=== PATIENT | female | born 1960 ===

== ENCOUNTER 2017-07-21 12:58 | Emergency (ER) | payer BC ==
[2017-07-21 14:29] VITALS: BP 130/64
--- NOTE | 2017-07-21 14:32 | UC ---
[facility] HPI - HPI Summary HPI Summary: 57 year old female presents with complains of sore/swollen tongue. - History of Current Complaint Chief Complaint: UCDentalProblem Stated Complaint: ORAL COMPLAINT Time Seen by Provider: 07/21/17 14:32 Hx Obtained From: Patient Hx Last Menstrual Period: n/a Onset/Duration: Sudden Onset Severity: Moderate Pain Scale Used: 0-10 Numeric - 5 - Allergies/Home Medications Allergies/Adverse Reactions: Allergies Allergy/AdvReac Type Severity Reaction Status Date / Time DAIRY Allergy Vomiting Uncoded 07/21/17 14:29 Home Medications: Home Medications Insulin Aspart [Novolog Flexpen] 1 unit SC TID 07/21/17 [History Confirmed 07/21] PMH/Surg Hx/FS Hx/Imm Hx Previously Healthy: Yes - Surgical History Surgical History: Yes Surgery Procedure, Year, and Place: Rt SHOULDER-DECOMPRESSION/DEBREEDING 2010. VECTRECTOMY (cleared for mri 06/12/2011); TUBAL LIGATION. GASTRO BYPASS. Lt TRIGGER FINGER. HYSTERECTOMY - Family History Known Family History: Positive: None - Social History Alcohol Use: Rare Substance Use Type: None Smoking Status (MU): Never Smoked Tobacco Have You Smoked in the Last Year: No - Immunization History Most Recent Influenza Vaccination: has not had Review of Systems Constitutional: Negative Skin: Negative Eyes: Negative ENT: Other - swollen tongue Respiratory: Negative Cardiovascular: Negative Gastrointestinal: Negative Genitourinary: Negative Motor: Negative Neurovascular: Negative Musculoskeletal: Negative Neurological: Negative Psychological: Negative All Other Systems Reviewed And Are Negative: Yes Physical Exam Triage Information Reviewed: Yes Vital Signs: Initial Vital Signs Temp 36.6 C 07/21/17 14:26 Pulse 76 07/21/17 14:26 Resp 16 07/21/17 14:26 BP 130/64 07/21/17 14:26 Pulse Ox 98 07/21/17 14:26 Eye Exam: Normal ENT Exam: Normal ENT: Positive: Other - swollen/erythematous tongue Dental Exam: Normal Neck exam: Normal Neck: Positive: 1 Respiratory Exam: Normal Cardiovascular Exam: Normal Abdominal Exam: Normal Musculoskeletal Exam: Normal Neurological Exam: Normal Psychological Exam: Normal Skin Exam: Normal Dental Complaint Course/Dx - Differential Dx/Diagnosis Provider Diagnoses: swollen tongue. painful tongue Discharge - Discharge Plan Condition: Stable Disposition: HOME Prescriptions: Amoxicillin/Clavulanate 600 [Augmentin Es-600 (NF)] 600 mg PO BID #100 btl Fluconazole [Diflucan 150 MG (NF)] 150 mg PO ONCE #1 tab Magic M W2 Jose/Maal/Nyst/Lido* 5 ml SWISH SPIT QID PRN #120 ml PRN Reason: Pain predniSONE TAB* [Deltasone TAB*] 40 mg PO DAILY #8 tab Patient Education Materials: Oral Candidiasis (ED) Forms: *Work Release Referrals: Ruben Cordova MD [Primary Care Provider] -
[2017-07-21] MEDS ORDERED: methylPREDNISolone 125 MG* 2 ML VIAL IM ONE (14:39)
== END 2017-07-21 15:35 | disposition home or self-care (01) ==
LOC: UCCORT 12:58
DX: K14.8 Other diseases of tongue (principal); K14.6 Glossodynia
CPT/HCPCS: 87070; 87205; 87640; 87641; 96372; 99212; G0463; J2930

== ENCOUNTER 2018-11-02 06:17 | Day surgery (SDC) | payer BC, OTHER ==
--- NOTE | 2018-10-27 09:42 | HP ---
Amended report to enter cosigning physician. PREOPERATIVE HISTORY AND PHYSICAL: DATE OF ADMISSION/SURGERY: 11/02/18 DATE OF OFFICE VISIT/ENCOUNTER: 10/21/18 ATTENDING SURGEON: Pia Rodrigues MD* (dictated by MARY CARMEN Barron). PROCEDURE: Right index and ring trigger finger releases. HISTORY OF PRESENT ILLNESS: This is a 58-year-old female who has had problems with triggering in her right index and ring fingers since 2017. This is a work- related problem. She has received cortisone injections to both fingers, more than once over the past couple of years and notes it had been helpful. Unfortunately, the symptoms returned. She is now interested in pursing more definitive treatment for this problem in the form of trigger finger releases. PAST MEDICAL HISTORY: 1. ADD. 2. Diabetes type 1. 3. Hypercholesteremia. PAST SURGICAL HISTORY: 1. TFCC repair, left wrist. 2. Bilateral trigger thumb releases. 3. Bilateral cataract removal. 4. Right middle and left index trigger finger releases. 5. Right shoulder surgery. 6. Laser surgery for detached retina. 7. Hysterectomy. 8. Vitrectomy. CURRENT MEDICATIONS: 1. Adderall 10 mg b.i.d. 2. Basaglar KwikPen 100 units/mL 20 units daily. 3. NovoLog FlexPen 100 units/mL inject 1 unit at mealtime. 4. Singulair 10 mg daily. 5. Timolol malleate ophthalmic gel forming 0.5 one drop each eye at bedtime. 6. Simvastatin 20 mg daily. ALLERGIES: No known drug allergies, she does have seasonal allergies. FAMILY MEDICAL HISTORY: Congestive heart failure, uterine cancer, Zaman syndrome, and ovarian cancer. SOCIAL HISTORY: She is employed at [employer]. She denies tobacco and recreational drug use. She drinks alcohol on occasion. REVIEW OF SYSTEMS: Negative for general, cephalic, cardiovascular, respiratory , GI, , other musculoskeletal, integumentary, endocrine, neurologic, and hematologic symptoms. Infectious Disease: Negative for MRSA, hepatitis C, HIV. PHYSICAL EXAMINATION GENERAL: Well-developed, well-nourished, 58-year-old female, in no acute distress. VITAL SIGNS: Height 5 feet 2 inches, weight 185 pounds, pulse rate 82, blood pressure 120/80. HEENT: Normocephalic, atraumatic. She has slight deviation of her right eye but pupils were equal and reactive to light and accommodation. Extraocular movements are intact. Throat is clear. NECK: Supple. No palpable lymph nodes. PULMONARY: Lungs are clear to auscultation bilaterally. No wheezes, rales, or rhonchi. CARDIOVASCULAR: Regular rate and rhythm. S1, S2. No murmurs, rubs, or gallops. No edema. ABDOMEN: Positive bowel sounds, soft, nontender. NEUROLOGICAL: Alert and oriented x3. Cranial nerves II through XII are intact. Sensation is intact to light touch. MUSCULOSKELETAL: On exam of her right hand, there is no visible swelling. Skin is intact. She has tenderness to palpation at the A1 pulleys at both the right index and ring fingers. She has difficulty fully flexing the fingers and active triggering of the index finger. IMPRESSION: Right index and ring trigger fingers. PLAN: The patient is scheduled to undergo right index and ring trigger finger releases with Dr. Rodrigues on 11/02/18. She will return to the office 10 days postop for followup and suture removal. A prescription for Ultracet was e- scribed to the patient's pharmacy for postoperative pain management. MARY CARMEN BARRON [id number]/GISELLE #: [id number] CYRUS
[~2018-11-02 06:17] MED LIST: Buffered Lidocaine 1% SYRIN* 1 ML/SYRINGE INTRADERM ONE; Famotidine IV* 10 MG/ML 2 ML (20 mg) IV ONE; Lactated Ringers 1000 ML Bag* 1,000 ML IV SCH
[2018-11-02] MEDS ORDERED: Famotidine IV* 10 MG/ML 2 ML (20 mg) ONE (06:29)
[2018-11-02] MEDS ORDERED: Lidocaine 1% INJ* 10 MG/ML 30 ML SDV ONE (06:53)
[2018-11-02] MEDS ORDERED: Midazolam* 1 MG/ML 5 ML VIAL (5 MG) ONE (07:27)
[2018-11-02] MEDS ORDERED: Propofol* 10 MG/ML 20 ML BTL ONE (07:28)
[2018-11-02] MEDS ORDERED: Ondansetron INJ* 2 MG/ML VIAL ONE (07:28)
[2018-11-02] MEDS ORDERED: DiMENhydriNATE IV* 50 MG/ML VIAL ONE (07:28)
[2018-11-02] MEDS ORDERED: Ketorolac INJ* 30 MG/ML 1 ML VIAL ONE (07:28)
[2018-11-02] MEDS ORDERED: Acetaminophen TAB* 325 MG PO PRN (08:00)
[2018-11-02] MEDS ORDERED: Metoclopramide IV* 5 MG/ML 2 ML VIAL IV PRN (08:00)
[2018-11-02 08:17] VITALS: BP 121/69
--- NOTE | 2018-11-02 21:08 | OP ---
DATE OF OPERATION: 11/02/18 [facility] DATE OF : 62 SURGEON: Pia Rodrigues MD. INSTRUMENTATION SUPERVISOR: MARY CARMEN Barron. ANESTHESIA: Local MAC. PRE-OP DIAGNOSIS: Trigger finger of the right index and ring fingers. POST-OP DIAGNOSIS: Trigger finger of the right index and ring fingers. OPERATIVE PROCEDURE: Trigger release, right index and ring fingers. ESTIMATED BLOOD LOSS: Zero. TOURNIQUET TIME: Approximately 10 minutes. INDICATIONS FOR PROCEDURE: Nahomi is a 58-year-old female who has triggering and locking of her right index and ring fingers. She presents for trigger release. DESCRIPTION OF PROCEDURE: The patient was brought to the operating room, was given a sedation anesthetic and a local infiltration of 10 cc of 1% plain lidocaine in the palm of her right hand. The skin of her right hand and forearm was prepped and draped in the usual sterile fashion. The hand and forearm were exsanguinated and the tourniquet elevated to 250 mmHg. A transverse incision was made centered over the A1 keo of the index finger and the ring finger. We dissected through the subcutaneous tissue down to both pulleys. The pulleys were incised longitudinally with a knife and the flexor tendons completely released. The flexor tendons were in good condition. The wounds were irrigated and the skin edges reapproximated with 4-0 nylon suture. The wounds were dressed with Xeroform, 4x4, Webril, and an Charlie wrap. The patient tolerated the procedure well and was brought to the recovery room in good condition. [id number]/CPS #: [id number] MTDDaniel
== END 2018-11-02 08:26 | disposition home or self-care (01) ==
LOC: OREAST 06:17
PROVIDERS: ATTEND Orthopaedic Surgery
DX: M65.321 Trigger finger, right index finger (principal); M65.341 Trigger finger, right ring finger; F98.8 Other specified behavioral and emotional disorders with onset usually occurring in childhood and adolescence; E10.9 Type 1 diabetes mellitus without complications; E78.00 Pure hypercholesterolemia, unspecified
CPT/HCPCS: J1240; J1885; J2250; J2405; J2704

== ENCOUNTER 2019-02-04 15:40 | Emergency (ER) | payer BC, OTHER ==
[2019-02-04 16:16] VITALS: BP 137/74
--- NOTE | 2019-02-04 17:04 | ED ---
Upper Extremity Pain - HPI Summary HPI Summary: 58 yr old female with the complain of lateral left elbow pain. Onset December 16. The patient states that she had right hand surgery earlier in the spring. She has been over using the left arm, and carried a lot of bags shopping with just the left hand. The following morning, December 16, she experienced pain over the left lateral epicondyle. The pain is worse with paper machine backtender movements and trying to electronic parts salesperson things like motion of picking up a cup of coffee. She had no fall or direct trauma. - History of Current Complaint Chief Complaint: UCUpperExtremity Stated Complaint: LT ELBOW/ARM PAIN Time Seen by Provider: 02/04/19 16:31 Hx Last Menstrual Period: n/a - Allergies/Home Medications Allergies/Adverse Reactions: Allergies Allergy/AdvReac Type Severity Reaction Status Date / Time DAIRY Allergy Vomiting Uncoded 11/02/18 06:47 seasonal Allergy Unknown Uncoded 11/02/18 06:47 Reaction Details Home Medications: Home Medications Insulin Glargine,Hum.[email or web address].anlog [Albert Veronica] 18 unit SC QAM 02/04/19 [ History Confirmed 02/04/19] PMH/Surg Hx/FS Hx/Imm Hx Endocrine/Hematology History: Reports: Hx Diabetes - TYPE I- ON INSULIN FOR, Hx Thyroid Disease - ANDREE'S DISEASE Cardiovascular History: Denies: Hx Hypertension, Hx Pacemaker/ICD, Other Cardiovascular Problems/ Disorders Respiratory History: Denies: Hx Asthma, Hx Chronic Obstructive Pulmonary Disease (COPD) GI History: Reports: Other GI Disorders - HOSHIMATOS DISEASE Denies: Hx Ulcer History: Denies: Other Problems/Disorders Musculoskeletal History: Reports: Hx Arthritis Sensory History: Reports: Hx Cataracts - BILATERAL EYES, Hx Contacts or Glasses - GLASSES, Hx Glaucoma - BOTH EYES Denies: Hx Hearing Aid Opthamlomology History: Reports: Hx Cataracts - BILATERAL EYES, Hx Contacts or Glasses - GLASSES, Hx Glaucoma - BOTH EYES Neurological History: Reports: Hx Nerve Disease - NEUROPATHY IN FEET, Other Neuro Impairments/Disorders - NEUROPATHY IN FEET Psychiatric History: Denies: Hx Panic Disorder - Cancer History Hx Chemotherapy: No Hx Radiation Therapy: No - Surgical History Surgery Procedure, Year, and Place: Rt SHOULDER-DECOMPRESSION/DEBREEDING 2010. VITRECTOMY (cleared for mri 06/12/2011); TUBAL LIGATION. GASTRO BYPASS. Lt TRIGGER FINGER. HYSTERECTOMY Hx Anesthesia Reactions: Yes - NAUSEA/VOMITING Infectious Disease History: No Infectious Disease History: Denies: Hx Clostridium Difficile, Hx Hepatitis, Hx Human Immunodeficiency Virus (HIV), Hx of Known/Suspected MRSA, Hx Shingles, Hx Tuberculosis, Hx Known/ Suspected VRE, Hx Known/Suspected VRSA, History Other Infectious Disease, Traveled Outside the [place] in Last 30 Days - Family History Known Family History: Positive: None - Social History Alcohol Use: Rare Alcohol Amount: SOCIALLY Substance Use Type: Reports: None Smoking Status (MU): Never Smoked Tobacco Have You Smoked in the Last Year: No Review of Systems Constitutional: Negative Eyes: Negative Positive: Other - left lateral elbow pain All Other Systems Reviewed And Are Negative: Yes Physical Exam Triage Information Reviewed: Yes Vital Signs On Initial Exam: Initial Vitals Temp Pulse Resp BP Pulse Ox 98.2 F 78 16 137/74 98 02/04/19 16:10 02/04/19 16:10 02/04/19 16:10 02/04/19 16:10 02/04/19 16:10 Vital Signs Reviewed: Yes Appearance: Positive: Well-Appearing, No Pain Distress Skin: Positive: Warm, Skin Color Reflects Adequate Perfusion Head/Face: Positive: Normal Head/Face Inspection Eyes: Positive: EOMI ENT: Positive: Normal ENT inspection Neck: Positive: Nontender Respiratory/Lung Sounds: Positive: Clear to Auscultation, Breath Sounds Present Cardiovascular: Positive: Pulses are Symmetrical in both Upper and Lower Extremities Abdomen Description: Negative: Distended Musculoskeletal: Positive: Other - left elbow without effusion. There is tenderness only over the lateral epicondyle left elbow with worsening of discomfort with dorsiflexion of the left wrist and engaging the posterior compartment muscles of the left forearm. Making a band with my hand squeezing the muscles a little distal to the lat epicondyle, she has no pain on dorsiflexion of the left wrist. Neurological: Positive: Sensory/Motor Intact, Alert, Oriented to Person Place, Time, CN Intact II-III Psychiatric: Positive: Normal Diagnostics - Vital Signs Vital Signs Temp Pulse Resp BP Pulse Ox 02/04/19 16:10 98.2 F 78 16 137/74 98 - Laboratory Lab Statement: Any lab studies that have been ordered have been reviewed, and results considered in the medical decision making process. - Radiology left elbow. Radiology Interpretation Completed By: Radiologist - NEG Course/Dx - Course Course Of Treatment: 58 yr old with tennis elbow. DC home FU with ortho. - Diagnoses Provider Diagnoses: Lateral epicondylitis, left elbow Discharge - Sign-Out/Discharge Documenting (check all that apply): Patient Departure All imaging exams completed and their final reports reviewed: Yes - Discharge Plan Condition: Good Disposition: HOME Patient Education Materials: Tennis Elbow (ED) Referrals: Ruben Cordova MD [Primary Care Provider] - 2 Days Pia Rodrigues MD [Medical Doctor] - 2 Days Additional Instructions: picking belt operator a tennis elbow strap to give support to your tendons at the drug store. Ask pharmacist to help you find. - Billing Disposition and Condition Condition: GOOD Disposition: Home
== END 2019-02-04 17:27 | disposition home or self-care (01) ==
LOC: UCCORT 15:40
DX: E10.8 Type 1 diabetes mellitus with unspecified complications (principal); M77.12 Lateral epicondylitis, left elbow; Z79.4 Long term (current) use of insulin; E06.3 Autoimmune thyroiditis
CPT/HCPCS: 99211; G0463